=== PATIENT | male | born 1995 | race African-American/Black ===

== ENCOUNTER 2017-09-19 13:06 | Emergency (ER) | payer SELFPAY ==
[~2017-09-19] VITALS: Ht 165.1 cm; Wt 60.0 kg
[2017-09-19 13:44] LABS: APPEARANCE CLEAR ((CLEAR)); BILIRUBIN NEGATIVE; BLOOD SMALL; COLOR YELLOW ((YELLOW)); GLUCOSE (STRIP) NEGATIVE; KETONES NEGATIVE; LEUKOCYTES TRACE; NITRITE NEGATIVE; PROTEIN (STRIP) NEGATIVE; SPECIFIC GRAVITY 1.026 (1.000-1.030); UROBILINOGEN 0.2 MG/DL (0.2-1.0)
[2017-09-19 13:58] LABS: BACTERIA NONE SEEN /HPF; EPITHELIAL CELLS NONE SEEN /HPF; MUCUS TRACE /LPF; RED BLOOD CELLS 0-5 /HPF (0-5); UCUL ADDED? YES
[2017-09-19] MEDS ORDERED: BACTRIM,SEPT1 TABLET PO (15:47)
[2017-09-19 16:25] VITALS: BP 131/73
== END 2017-09-19 16:25 | disposition home or self-care (01) ==
LOC: EME 13:06
DX: N39.0 Urinary tract infection, site not specified (principal)
CPT/HCPCS: 81003; 87086

== ENCOUNTER 2017-11-13 12:21 | Emergency (ER) | payer OTHER ==
[~2017-11-13] VITALS: Ht 165.1 cm; Wt 59.0 kg
[~2017-11-13 12:21] MED LIST: BACTRIM,SEPT1 TABLET PO
[2017-11-13 13:23] LABS: HEMATOCRIT 44.7 % (38.0-50.0); HEMOGLOBIN 15.2 G/DL (12.5-16.6); MCH 31.2 PG (29.0-34.0); MCV 91.8 FL (86-99); PLATELET COUNT 289 K/uL (156-360); RBC DIS.WIDTH-CV 12.2 % (11.8-14.6); RBC DIS.WIDTH-SD 41.5 % (39-53); RED BLOOD COUNT 4.87 M/uL (4.00-5.50); WHITE BLOOD COUNT 6.8 K/uL (4.1-10.2)
[2017-11-13 13:33] LABS: ALBUMIN 4.8 g/dL (3.2-4.8)
[2017-11-13 13:34] LABS: CHLORIDE 103 mEq/L (99-109); SODIUM 139 mEq/L (136-147)
[2017-11-13 13:36] LABS: GLUCOSE 98 mg/dL (70-99); TOTAL PROTEIN 8.6 g/dL (6.4-8.3)
[2017-11-13 13:38] LABS: TOTAL BILIRUBIN 0.4 mg/dL (0.0-1.0)
[2017-11-13 13:39] LABS: ALKALINE PHOSPHATASE 68 IU/L (3-129)
[2017-11-13 13:40] LABS: CREATININE 0.9 mg/dL (0.6-1.3); GFR ESTIMATE (CALCULATED) > 59 mL/min/ (58.99-99999)
[2017-11-13 13:41] LABS: AST (GOT) 41 IU/L (2-34); UREA NITROGEN (BUN) 17 mg/dL (9-23)
[2017-11-13 13:43] LABS: ALT (GPT) 40 IU/L (3-49)
[2017-11-13 15:33] LABS: APPEARANCE CLEAR ((CLEAR)); BILIRUBIN NEGATIVE; BLOOD NEGATIVE; COLOR STRAW ((YELLOW)); GLUCOSE (STRIP) NEGATIVE; KETONES NEGATIVE; LEUKOCYTES NEGATIVE; NITRITE NEGATIVE; PROTEIN (STRIP) NEGATIVE; SPECIFIC GRAVITY 1.015 (1.000-1.030); UCUL ADDED? NO; UROBILINOGEN 0.2 MG/DL (0.2-1.0)
[2017-11-13 17:45] LABS: SOURCE URINE
[2017-11-13] MEDS ORDERED: PYRIDIUM200 MG PO (20:13)
[2017-11-13 20:24] VITALS: BP 124/76
[2017-11-16 12:30] LABS: CHLAMYDIA TRACHOMATIS NEGATIVE; NEISSERIA GONORRHOEAE NEGATIVE
== END 2017-11-13 20:25 | disposition home or self-care (01) ==
LOC: EME 12:21
PROVIDERS: Nurse Practitioner Family
DX: R10.30 Lower abdominal pain, unspecified (principal); R30.0 Dysuria; Z87.440 Personal history of urinary (tract) infections
CPT/HCPCS: 74177; 80053; 81003; 85027; 87491; 87591; 99281; 99284; J7030